=== PATIENT | male | born 1995 | race African-American/Black ===

== ENCOUNTER 2021-12-04 20:20 | Emergency (ER) | payer BC, OTHER ==
[~2021-12-04] VITALS: Ht 185.4 cm; Wt 93.9 kg
[2021-12-04 20:30] VITALS: BP 143/70
--- NOTE | 2021-12-04 22:16 | NUR ---
PT TAKEN TO BED 4
--- NOTE | 2021-12-04 22:20 | NUR ---
C/O INJURY TO LEFT EYE W BLURRINESS. PT STATES HE WAS WAS PLAYING BASKETBALL AND GOT POKED IN THE EYE. VISIBLE VESSEL DAMAGE. DENIES PAIN AND MENDIOLA. PMH: DENIES MEDS: DENIES
[2021-12-04] MEDS ORDERED: FLUORESCEIN OPTH STRIP 1 MG OP ONE (22:25)
--- NOTE | 2021-12-04 22:28 | NUR ---
Dr. Llanes examining patient.
[2021-12-04] MEDS ORDERED: TETRACAINE HCL/PF 0.5% OPTH 4 ML BTL ONE (22:29)
[2021-12-04] MEDS ORDERED: TETRACAINE HCL/PF 0.5% OPTH 4 ML BTL OP ONE (22:30)
[2021-12-04] MEDS ORDERED: IBUP-2213 PO (22:38)
[2021-12-04 22:50] VITALS: BP 143/70
== END 2021-12-04 22:50 | disposition home or self-care (01) ==
LOC: MED 20:20
DX: H11.32 Conjunctival hemorrhage, left eye (principal); Z79.899 Other long term (current) drug therapy
CPT/HCPCS: 99283